=== PATIENT | male | born 1960 | race Caucasian/White ===

== ENCOUNTER 2020-11-25 13:21 | Outpatient (NON) | payer OTHER, SELFPAY ==
[2020-11-25 15:28] LABS: Appearance Synovial Fluid Cloudy (Clear); Color Synovial Fluid Yellow (Colorless); Crystals Synovial Fluid None Seen (None Seen); Source Synovial Fluid Synovial fluid
[2020-11-25 15:29] LABS: Lymphocytes Synovial Fluid 14 %; Monocytes Synovial Fluid 7 %; Neutrophils Synovial Fluid 79 % (0-25); RBC Synovial Fluid 14439 /uL (0-0)
== END 2020-11-25 13:22 | disposition home or self-care (01) ==
PROVIDERS: Visit Provider Orthopaedic Surgery
DX: M25.461 Effusion, right knee (principal); M25.561 Pain in right knee
CPT/HCPCS: 89051; 89060

== ENCOUNTER 2021-09-28 13:01 | Outpatient (CLI) | payer OTHER, SELFPAY ==
--- NOTE | ~2021-09-28 | US_ITS ---
EXAMINATION: US knee asp inj w image RT DATE: 09/28/2021 12:25 INDICATION: Right knee pain and swelling TECHNIQUE: The procedure including the risks and benefits was discussed with the patient. Risks discu ssed included bleeding, allergic reaction and infection. The patient understood the risks and agreed to proceed. The skin overlying the lateral aspect of the suprapatellar pouch of the right knee was p repped and draped in usual sterile fashion. Anesthetic was administered with 1% lidocaine subcutaneo usly. A 20 gauge spinal needle was advanced under continuous ultrasound observation into a small ane choic fluid pocket within the suprapatellar pouch. Approximately 1 mL of slightly turbid yellowish-am radha-colored fluid was aspirated. The needle was removed and the entry site was cleaned and dressed. Post procedure ultrasound demonstrated no hemorrhage. FINDINGS: Real-time ultrasound imaging demonstrates prominent distention of the suprapatellar pouch f illed primarily with hypoechoic synovitis interspersed with small amounts of anechoic fluid. Subseque nt images demonstrate needles advanced into a small fluid pocket at the lateral gutter of the suprapa tellar pouch. IMPRESSION: 1. Successful Ultrasound-guided right knee joint aspiration yielding minimal amount of fluid. 2. Bulky synovitis at the suprapatellar pouch suggesting an inflammatory arthritis and which may be r elated to provided history of rheumatoid arthritis. Reviewed, dictated and finalized at location A. IMPRESSION: 1. Successful Ultrasound-guided right knee joint aspiration yielding minimal am ount of fluid. 2. Bulky synovitis at the suprapatellar pouch suggesting an inflammatory arthri tis and which may be related to provided history of rheumatoid arthritis.
[2021-09-28 14:11] LABS: Appearance Synovial Fluid Cloudy (Clear); Color Synovial Fluid Yellow (Colorless); Source Synovial Fluid Synovial fluid
[2021-09-28 14:12] LABS: Crystals Synovial Fluid None Seen (None Seen); Lymphocytes Synovial Fluid 6 %; Neutrophils Synovial Fluid 94 % (0-25)
== END 2021-09-28 13:02 | disposition home or self-care (01) ==
PROVIDERS: Visit Provider Orthopaedic Surgery
DX: M25.561 Pain in right knee (principal)
CPT/HCPCS: 20611; 89051; 89060

== ENCOUNTER 2023-06-16 14:12 | Outpatient (CLI) | payer OTHER, SELFPAY ==
--- NOTE | ~2023-06-16 | XR_ITS ---
XR chest 2V DATE: 06/16/2023 14:27 INDICATION: Tuberculosis screening TECHNIQUE: AP and lateral views COMPARISON: None FINDINGS: Normal heart size. No hilar or mediastinal enlargement. No pulmonary infiltrate or consolid ation, pleural effusion or pulmonary vascular congestion or pneumothorax. Included skeletal structures are unremarkable. IMPRESSION: No active cardiopulmonary disease Reviewed, dictated and finalized at location B. O ADMINISTRATOR
== END 2023-06-16 14:13 | disposition home or self-care (01) ==
PROVIDERS: Visit Provider Obstetrics & Gynecology
DX: Z11.1 Encounter for screening for respiratory tuberculosis (principal)
CPT/HCPCS: 71046